=== PATIENT | female | born 1990 | race Caucasian/White ===

== ENCOUNTER 2022-01-31 06:28 | Emergency (ER) | payer OTHER ==
[~2022-01-31 06:28] MED LIST: AMOXICILLIN500 M1 PO
[2022-01-31] MEDS ORDERED: IBUPROFEN800 MG PO (09:28)
[2022-01-31] MEDS ORDERED: HYDROCODON-ACE1 EAC6 PO (09:28)
[2022-01-31] MEDS ORDERED: BACITRACIN28.4 GM TP (09:28)
== END 2022-01-31 09:50 | disposition home or self-care (01) ==
LOC: ER1 06:28
DX: T20.22XA Burn of second degree of lip(s), initial encounter (principal); T28.0XXA Burn of mouth and pharynx, initial encounter; T23.071A Burn of unspecified degree of right wrist, initial encounter; Z90.89 Acquired absence of other organs; X11.8XXA Contact with other hot tap-water, initial encounter
CPT/HCPCS: 96374; 96375; 99283; J2270; J2405